=== PATIENT | female | born 1965 | race Caucasian/White ===

== ENCOUNTER 2024-05-04 13:14 | Day surgery (SDC) | payer OTHER ==
[~2024-05-04] VITALS: Ht 177.8 cm; Wt 52.1 kg
[~2024-05-04 13:14] MED LIST: Balanced Salt Epinephrine Irrigation Solution 500 mL IR SCH; Lidocaine HCl/Pf 1% 5 ML VIAL XX SCH; Moxifloxacin HCL 0.5 MG/0.1 ML 0.4MLSYR RIGHTEYE SCH; NS 500 ML IV ONE; PHENYLEPHRINE\\TROPICAMIDE\\TETRACAINE OPHTHALMIC DILATING SOLN RIGHTEYE PRN; Povidone-Iodine 450 DROP/30 ML Solution ONE; Povidone-Iodine 450 DROP/30 ML Solution RIGHTEYE SCH; Tetracaine HCl/Pf 0.5% Opth Soln 4 ml ONE; Triamcinolone Inj Susp 40 MG / ML 1ML Vial INJ SCH; Triamcinolone Inj Susp 40 MG / ML 1ML Vial ONE
[2024-05-04] MEDS ORDERED: NS 500 ML IV ONE (13:39)
[2024-05-04] MEDS ORDERED: Budeprion Xl300 MG PO (13:40)
[2024-05-04] MEDS ORDERED: RIZATRIPTAN10 M3 PO (13:41)
[2024-05-04] MEDS ORDERED: ATORVASTATIN CA20 MG PO (13:41)
[2024-05-04] MEDS ORDERED: PANTOPRAZOLE SO40 M2 PO (13:41)
[2024-05-04] MEDS ORDERED: Fluoxetine HCl10 M1 PO (13:41)
[2024-05-04] MEDS ORDERED: MIRALAX17 GM PO (13:42)
[2024-05-04] MEDS ORDERED: Diazepam 5 MG Tab ONE (14:00)
[2024-05-04] MEDS ORDERED: Midazolam HCl 1MG / ML 2ML Vial ONE (14:51)
== END 2024-05-04 15:24 | disposition home or self-care (01) ==
LOC: ORSCSDS 13:14
PROVIDERS: Ophthalmology
PROC: 08RJ3JZ Replacement of Right Lens with Synthetic Substitute, Percutaneous Approach (ICD-10-PCS; principal; 2024-05-04 14:30)
DX: H25.813 Combined forms of age-related cataract, bilateral (principal); Z96.1 Presence of intraocular lens; H35.30 Unspecified macular degeneration; H35.89 Other specified retinal disorders; Z79.899 Other long term (current) drug therapy
CPT/HCPCS: A9270; J2250; J3301; J7040; V2632

== ENCOUNTER 2024-05-25 09:43 | Day surgery (SDC) | payer OTHER ==
[~2024-05-25] VITALS: Ht 177.8 cm; Wt 52.5 kg
[~2024-05-25 09:43] MED LIST changes: +ATORVASTATIN CA20 MG PO; -Balanced Salt Epinephrine Irrigation Solution 500 mL IR SCH; +Budeprion Xl300 MG PO; +Fluoxetine HCl10 M1 PO; -Lidocaine HCl/Pf 1% 5 ML VIAL XX SCH; +MIRALAX17 GM PO; -Moxifloxacin HCL 0.5 MG/0.1 ML 0.4MLSYR RIGHTEYE SCH; +PANTOPRAZOLE SO40 M2 PO; -PHENYLEPHRINE\\TROPICAMIDE\\TETRACAINE OPHTHALMIC DILATING SOLN RIGHTEYE PRN; -Povidone-Iodine 450 DROP/30 ML Solution RIGHTEYE SCH; +RIZATRIPTAN10 M3 PO; -Triamcinolone Inj Susp 40 MG / ML 1ML Vial INJ SCH
[2024-05-25] MEDS ORDERED: SYSTANE 0.4-0.315 ML BOTHEYES (10:28)
[2024-05-25] MEDS ORDERED: NS 500 ML IV ONE (10:35)
[2024-05-25] MEDS ORDERED: Midazolam HCl 1MG / ML 2ML Vial ONE (11:11)
[2024-05-25] MEDS ORDERED: BSS PLUS/EPINEPHRINE IRRIGATION SOLUTION 500 ML IR ONE (11:21)
[2024-05-25] MEDS ORDERED: Lidocaine HCl/Pf 1% 5 ML VIAL XX ONE (11:21)
[2024-05-25] MEDS ORDERED: Moxifloxacin HCL 0.5 MG/0.1 ML 0.4MLSYR XX ONE (11:21)
--- NOTE | 2024-05-25 11:50 | NUR ---
05/25/24 1150 DENISE CHAND PT STATES THAT LEFT TIME SHE HAD SURGERY ON HER EYES, SHE NOTICED A BRUISE ON HER LEFT FOREARM. SHE STATES "HEMATOMA". I LOOKED AT FOREARM LEFT THIS TIME, NO BRUISING NOTED. IV START WAS LEFT WRIST
== END 2024-05-25 11:51 | disposition home or self-care (01) ==
LOC: ORSCSDS 09:43
PROVIDERS: Ophthalmology
PROC: 08RK3JZ Replacement of Left Lens with Synthetic Substitute, Percutaneous Approach (ICD-10-PCS; principal; 2024-05-25 11:30)
DX: H25.812 Combined forms of age-related cataract, left eye (principal); Z96.1 Presence of intraocular lens; H35.89 Other specified retinal disorders; H35.30 Unspecified macular degeneration; Z79.899 Other long term (current) drug therapy
CPT/HCPCS: J2003; J2250; J3301; J7040; V2632